=== PATIENT | male | born 1985 | race Caucasian/White ===

== ENCOUNTER 2018-03-08 12:16 | Emergency (ER) | payer MEDICARE, MEDICAID ==
[~2018-03-08] VITALS: Ht 185.4 cm; Wt 136.0 kg
[2018-03-08 12:17] VITALS: BP 100/70
[2018-03-08] MEDS ORDERED: OXYcodone/APAP 5/325MG TABLET ONE (12:57)
[2018-03-08] MEDS ORDERED: IBUPROFEN 200 MG TABLET ONE (12:57)
[2018-03-08] MEDS ORDERED: OXYcodone/APAP 5/325MG TABLET PO ONE (13:00)
[2018-03-08] MEDS ORDERED: IBUPROFEN 200 MG TABLET PO ONE (13:00)
== END 2018-03-08 13:09 | disposition home or self-care (01) ==
LOC: ED 13:05
DX: K08.89 Other specified disorders of teeth and supporting structures (principal)
CPT/HCPCS: 99283

== ENCOUNTER 2018-10-25 13:11 | Emergency (ER) | payer MEDICARE, MEDICAID ==
[~2018-10-25] VITALS: Ht 182.9 cm; Wt 125.6 kg
[2018-10-25 13:39] VITALS: BP 124/81
== END 2018-10-25 14:24 | disposition home or self-care (01) ==
LOC: ED 14:15
DX: L03.115 Cellulitis of right lower limb (principal)
CPT/HCPCS: 99283

== ENCOUNTER 2020-11-05 16:55 | Emergency (ER) | payer MEDICARE, MEDICAID ==
[~2020-11-05] VITALS: Ht 185.4 cm; Wt 140.0 kg
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
--- NOTE | 2020-11-05 17:10 | NUR ---
DR. GARCIA AND ASAD ALCARAZ REMAIN AT BEDSIDE FOR EVALUATION, TO MOVE PT TO TRAUMA ROOM FOR CLOSER MONITOR. AIRWAY PATENT, PT ABLE TO CLEAR OWN SECRETION, SPEAKING IN FULL SENTENCES. C-COLLAR APPLIED BY DR. GARCIA AT THIS TIME. PT IN C-SPINE PRECAUTIONS.
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
[2020-11-05] MEDS ORDERED: LORazepam 2 MG/ML, 1ML IV ONE (17:21)
--- NOTE | 2020-11-05 17:22 | NUR ---
PT MOVED TO TRAUMA 3 AT THIS TIME. REPORT AND TRANSFER OF CARE TO SUMI RN AT THIS TIME.
[2020-11-05] MEDS: MORPHINE SULFATE 4 MG/ML, 1ML IVPush PRN ×2 (17:25→19:21)
[2020-11-05] MEDS ORDERED: MORPHINE SULFATE 4 MG/ML, 1ML ONE ×2 (17:26→19:19)
[2020-11-05] MEDS ORDERED: LORazepam 2 MG/ML, 1ML ONE ×2 (17:26→17:29)
[2020-11-05] MEDS ORDERED: ONDANSETRON 2MG/ML, 2ML ONE ×2 (17:26→17:28)
[2020-11-05 17:30] LABS: BASOPHILS % (AUTO) 1 % (0-1); EOSINOPHILS % (AUTO) 4 % (1-7); LYMPHOCYTES % (AUTO) 34 % (22-44); MEAN CORPUSCULAR HEMOGLOBIN 29.1 pg (27.5-34.5); MEAN PLATELET VOLUME 7.4 fL (7.4-10.4); MONOCYTES % (AUTO) 8 % (2-9); NEUTROPHILS % (AUTO) 54 % (42-75); PLATELET COUNT 323 x10^3/uL (130-400); RED BLOOD COUNT 5.53 x10^6/uL (4.38-5.82); RED CELL DISTRIBUTION WIDTH 14.1 % (9.4-14.8)
[2020-11-05] MEDS ORDERED: ONDANSETRON 2MG/ML, 2ML IVPush ONE (17:30)
[2020-11-05 17:31] LABS: MD NO
[2020-11-05] MEDS ORDERED: FENTANYL PF 100 MCG/2ML ONE ×2 (17:31→19:33)
[2020-11-05 17:41] LABS: ALBUMIN 4.2 g/dL (3.4-5.0); ANION GAP 9 mmol/L (5-15); CALCIUM 9.3 mg/dL (8.5-10.1); CHLORIDE 107 mmol/L (98-107); CREATININE 1.52 mg/dL (0.7-1.3)
--- NOTE | 2020-11-05 17:45 | NUR ---
PT TO CT BACK IN ROOM, OXY MASK ON AT 6 L
--- NOTE | 2020-11-05 17:51 | NUR ---
75% RA , PREPARING FOR INTUBATION
--- NOTE | 2020-11-05 17:55 | NUR ---
CHEST X RAY IN ROOM
--- NOTE | 2020-11-05 17:56 | NUR ---
PT GIVEN 20 ETOMIDATE 100 SUC GIVEN AT 1800. PT INTUBATEED WITH A 8.0 TUBE AT THE 24 AT THE LIP BY MD ABDUL. SOFT RESTRAINTS PUT ON RIGHT AND LEFT WRIST, 16 F OG PUT IN. 16 F LEAL CATH PUT IN.
[2020-11-05] MEDS ORDERED: CEFAZOLIN PMX 1GM/50ML 50 ML IV ONE (18:00)
[2020-11-05] MEDS ORDERED: CEFTRIAXONE 1,000 MG IM ONE (18:00)
[2020-11-05] MEDS ORDERED: DIPH,PERTUSS(ACELL),TET VAC/PF 0.5 ML IM-VACC ONE ×2 (18:00→18:34)
[2020-11-05] MEDS ORDERED: SUCCINYLCHOLINE 20 MG/ML, 10ML IVPush ONE (18:30)
[2020-11-05] MEDS ORDERED: PROPOFOL 10 MG/ML, 20ML IV ONE (18:30)
[2020-11-05] MEDS ORDERED: MIDAZOLAM 1 MG/ML, 2ML IVPush ONE (18:30)
[2020-11-05] MEDS ORDERED: ETOMIDATE 20 MG/10 ML IV ONE (18:30)
[2020-11-05] MEDS ORDERED: CEFTRIAXONE 1,000 MG ONE (18:32)
[2020-11-05] MEDS ORDERED: HYDROmorphone 2 MG/ML, 1ML ONE (18:36)
[2020-11-05] MEDS: FENTANYL PF 100 MCG/2ML IVPush PRN ×2 (18:57→19:35)
--- NOTE | 2020-11-05 19:06 | NUR ---
REPORT FROM RN SUMI. PATIENT IN STABLE CONIDITON, INTUBATED/SEDATED WTIH PROPOFOL. TOLERATNG NTERVENTIONS WELL. PATIENT IN TWO POINT UPPER EXTREMITY SOFT RESTRAINTS. INDWELLING LEAL CATH IN PLACE, OG TO LOWER INTERMITTENT SUCTION. PROPOFOL AT 40MCG/KG/MIN
[2020-11-05 19:29] VITALS: BP 167/103
--- NOTE | 2020-11-05 19:40 | NUR ---
PATIENT REPORT GIVEN TO [facility] TEAM CASSI REGALADO. PATIENT STABLE FOR TRANSPORT. VITAL SIGNS IMPROVING WITH PAIN MEDICATION. PATIENT TOLERATING INTERVENTIONS WELL. [facility] HAS NO ADDITIONAL QUESTIONS AT THIS TIME.
[2020-11-05] MEDS ORDERED: MIDAZOLAM 1 MG/ML, 5ML ONE (23:36)
[2020-11-05] MEDS ORDERED: SUCCINYLCHOLINE 20 MG/ML, 10ML ONE (23:36)
[2020-11-05] MEDS ORDERED: PROPOFOL 10 MG/ML, 100ML IV ONE (23:36)
[2020-11-05] MEDS ORDERED: ETOMIDATE 20 MG/10 ML ONE (23:36)
== END 2020-11-05 19:55 | disposition other institution (70) ==
LOC: ED 19:26
DX: S02.413A LeFort III fracture, initial encounter for closed fracture (principal); J45.909 Unspecified asthma, uncomplicated; Z90.49 Acquired absence of other specified parts of digestive tract; V89.2XXA Person injured in unspecified motor-vehicle accident, traffic, initial encounter; Y93.89 Activity, other specified; Y92.410 Unspecified street and highway as the place of occurrence of the external cause; Y99.8 Other external cause status
CPT/HCPCS: 31500; 36415; 70450; 70486; 71045; 72125; 80048; 80320; 82040; 85025; 90471; 90715; 96372; 96374; 96375; 96376; 99291; J0330; J0696; J2060; J2250; J2270; J2405; J2704; J3010; 94002; G0480

== ENCOUNTER 2020-11-27 18:09 | Emergency (ER) | payer MEDICARE, MEDICAID ==
[~2020-11-27] VITALS: Ht 182.9 cm; Wt 139.4 kg
--- NOTE | 2020-11-27 18:53 | NUR ---
Report to CASSI Barnett
[2020-11-27 19:26] VITALS: BP 118/76
--- NOTE | 2020-11-27 19:27 | NUR ---
Pt dc'd with written and verbal instructions. Pt instructed to f/u with ENT. Pt states he understands. Pt states brother is here to pick him up. Pt ambulatory out of ED without difficulty.
== END 2020-11-27 19:30 | disposition home or self-care (01) ==
LOC: ED 19:20
DX: T17.1XXA Foreign body in nostril, initial encounter (principal); F17.210 Nicotine dependence, cigarettes, uncomplicated; Z72.9 Problem related to lifestyle, unspecified; J45.909 Unspecified asthma, uncomplicated; Z90.89 Acquired absence of other organs; V89.2XXA Person injured in unspecified motor-vehicle accident, traffic, initial encounter; Y93.89 Activity, other specified; Y92.89 Other specified places as the place of occurrence of the external cause; Y99.8 Other external cause status
CPT/HCPCS: 99281; 99406